=== PATIENT | male | born 1990 | race Caucasian/White ===

== ENCOUNTER → 2020-01-16 | Outpatient (CLI) | payer BC | END | disposition home or self-care (01) | LOC: LABWHC1 08:26 | PROVIDERS: ATTEND Otolaryngology | DX: Z20.828 Contact with and (suspected) exposure to other viral communicable diseases (principal) | CPT/HCPCS: U0003; C9803 ==

== ENCOUNTER → 2025-01-11 | Day surgery (SDC) | payer BC ==
[~2025-01-11] MED LIST: LIDOCAINE 1% INJ 10MG/ML (20 ML MDV) ONE; PROPOFOL 10 MG/ML 20 ML VIAL IV ONE
[2025-01-11] MEDS: IV FLUID CONTINUATION 1,000 ML IV ONE (12:15)
[2025-01-11 12:26] VITALS: TEMP 98.3
[2025-01-11] MEDS: LACTATED RINGERS 1,000 ML IV SCH (12:44)
[2025-01-11] MEDS: LABETALOL SYRINGE 5 MG/ML (4 ML SYR) IVP STA (12:46)
--- NOTE | 2025-01-11 13:37 | P.PCN ---
Date of Procedure: 01/11/25 Procedure(s) Performed: BRIEF HISTORY: Patient is a 35-year-old, pleasant, white male discomfort of endoscopies upon evaluation of longstanding history of GERD. He is on omeprazole 20 mg daily and continues to do well. Schedule an upper endoscopy to rule complicated reflux disease.. PROCEDURE PERFORMED: Esophagogastroduodenoscopy with biopsy. PREOPERATIVE DIAGNOSIS: Longstanding history of GERD.. IV sedation per anesthesia. PROCEDURE: After informed consent was obtained, the patient was brought into the endoscopy unit. IV sedation was administered by Anesthesia under continuous monitoring. Initially the Olympus GIF-140 video endoscope was inserted into the mouth. Esophagus intubated without any difficulty. It was gradually advanced into the stomach and duodenum and carefully examined. The bulb had scattered erosions and the second part of the duodenum appeared normal. The scope at this time was withdrawn to the stomach, adequately insufflated with air, and upon careful examination, mucosa of the antrum had patchy areas of erythema consistent with gastritis and biopsies were done from this area. Mucosa of the, body, cardia and the fundus appeared normal. The scope was then withdrawn into the esophagus. The GE junction was located at 39 cm from the incisors. The esophagus appeared normal. There were no erosions or ulcerations seen and the patient tolerated the procedure well. IMPRESSION: 1. Mild duodenitis. 2. Mild antral gastritis 3. Normal appearing esophagus with no evidence of esophagitis or Rick's esophagus. RECOMMENDATIONS: The findings of this examination were discussed with the patient as well as his family. He was advised to continue with omeprazole 20 mg daily and follow antireflux measures..
[2025-01-11 14:24] VITALS: BP 134/98; PULSE 71; RESP 17
== END ==
LOC: ORWHC2ENDO 11:34
PROVIDERS: ATTEND Internal Medicine Gastroenterology
DX: K29.80 Duodenitis without bleeding (principal); K21.9 Gastro-esophageal reflux disease without esophagitis; K29.70 Gastritis, unspecified, without bleeding; Z79.899 Other long term (current) drug therapy
CPT/HCPCS: 88305; 43239; J2003; J2704; J1920